=== PATIENT | male | born 1995 | race Caucasian/White ===

== ENCOUNTER 2022-08-29 12:07 | Emergency (ER) | payer SELFPAY ==
[~2022-08-29] VITALS: Ht 157 cm; Wt 99.0 kg
[~2022-08-29 12:07] MED LIST: CEPH500C PO; CIPR-225 PO; DICL50TA4 PO; HYDR-1231 PO; HYDR-3876 PO; HYDR-4226 PO; IBUP-1780 PO; ONDA4TAB8 SL; OXYC1TAB87 PO
[2022-08-29] MEDS ORDERED: fentaNYL INJ 100 MCG/2 ML AMP IVP STA (12:59)
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
[2022-08-29] MEDS ORDERED: IOHEXOL 350 MG/ML 100 ML (OMNIPAQUE 350) VIAL IV ONE (13:30)
[2022-08-29] MEDS ORDERED: NS 100 ML (IVPB) BAG IV ONE (13:30)
[2022-08-29] MEDS ORDERED: HOLD METFORMIN - RECEIVED CONTRAST 20 ML VIAL IV SCH (13:30)
[2022-08-29 14:12] LABS: BASOPHILS # (AUTO) 0.1 10^3/uL (0.0-0.1); BASOPHILS % (AUTO) 1 % (0-10); EOSINOPHILS # (AUTO) 0.2 10^3/uL (0.0-0.3); EOSINOPHILS % (AUTO) 2 % (0-10); HEMATOCRIT 46 % (40-54); HEMOGLOBIN 14.9 g/dL (13.3-17.7); LYMPHOCYTES # (AUTO) 2.2 10^3/uL (1.0-4.0); LYMPHOCYTES % (AUTO) 22 % (12-44); MEAN CORPUSCULAR HEMOGLOBIN 27 pg (25-34); MEAN CORPUSCULAR HGB CONC 32 g/dL (32-36); MEAN CORPUSCULAR VOLUME 84 fL (80-99); MEAN PLATELET VOLUME 9.2 fL (9.0-12.2); MONOCYTES # (AUTO) 0.9 10^3/uL (0.0-1.0); MONOCYTES % (AUTO) 9 % (0-12); NEUTROPHILS # (AUTO) 6.6 10^3/uL (1.8-7.8); NEUTROPHILS % (AUTO) 66 % (42-75); PLATELET COUNT 341 10^3/uL (130-400); WHITE BLOOD COUNT 9.9 10^3/uL (4.3-11.0)
[2022-08-29 14:20] LABS: ALBUMIN 4.3 GM/DL (3.2-4.5); POTASSIUM 4.1 MMOL/L (3.6-5.0)
[2022-08-29 14:22] LABS: CALCIUM 9.8 MG/DL (8.5-10.1)
[2022-08-29 14:23] LABS: TOTAL PROTEIN 7.8 GM/DL (6.4-8.2)
[2022-08-29 14:24] LABS: BILIRUBIN,TOTAL 0.3 MG/DL (0.1-1.0)
[2022-08-29 14:26] LABS: CREATININE SERUM 0.72 MG/DL (0.60-1.30)
--- NOTE | 2022-08-29 14:32 | Diagnostic Imaging Report ---
PROCEDURE: CT lumbar spine without contrast. TECHNIQUE: Multiple contiguous axial images were obtained through the lumbar spine without the use of intravenous contrast. Sagittal and coronal reformations were then performed. Auto Exposure Controls were utilized during the CT exam to meet ALARA standards for radiation dose reduction. INDICATION: Right leg pain. Wound VAC with drainage, site unspecified. COMPARISON: None. FINDINGS: There 5 lumbar-type vertebral bodies. Normal alignment. Superior endplate compression fractures of T12 and L1 resulting in approximately 10% height loss at both levels. There is some sclerosis associated with the superior endplates and no acute appearing fracture lines identified. Vertebral body heights are otherwise preserved. No CT evidence high-grade spinal canal stenosis. Bilateral sacroiliac joint anchors. Chronic appearing fracture deformity of the left sacral ala is partially visualized. Punctate nonobstructing calyceal tip renal stones in the right kidney. No acute CT findings in the visualized paravertebral soft tissues. No skin defects are seen within the [id number]. IMPRESSION: 1. Superior endplate compression fractures of T12 and L1 are most likely chronic. No acute appearing fracture lines. 2. Partially visualized chronic left sacral ala fracture and bilateral sacroiliac joint anchors. 3. No CT evidence of neural impingement. Dictated by: Dictated on workstation # [id number]
--- NOTE | 2022-08-29 15:05 | Diagnostic Imaging Report ---
PROCEDURE: CT right lower extremity without contrast. TECHNIQUE: Axially acquired CT was obtained through the right lower extremity without intravenous contrast. Coronal and sagittal reformations were also performed. Auto Exposure Controls were utilized during the CT exam to meet ALARA standards for radiation dose reduction. INDICATION: Right leg pain. Recent surgery. COMPARISON: None. FINDINGS: No mass or fluid collection is seen in the soft tissues of the right lower extremity. There is an area of soft tissue fullness in the superficial soft tissues of the mid aspect of the medial right thigh measuring 5.9 x 1.3 cm. Mildly prominent right inguinal lymph nodes are seen. No evidence of mass or hematoma in the musculature of the included right lower extremity. No acute osseous abnormality. The included abdomen and pelvis have normal appearance. IMPRESSION: 1. Cellulitis involving the medial aspect of the mid right thigh. No drainable fluid collection or evidence of soft tissue mass. Dictated by: Dictated on workstation # [id number]
[2022-08-29] MEDS ORDERED: CEPH500T PO (15:35)
[2022-08-29] MEDS ORDERED: DOXY100T31 PO (15:35)
[2022-08-29] MEDS ORDERED: ACHD5005 PO (15:36)
[2022-08-29] MEDS ORDERED: APIX2.5T PO (15:36)
[2022-08-29 15:47] VITALS: BP 132/92
== END 2022-08-29 15:47 | disposition home or self-care (01) ==
LOC: EDUNIT# 12:07 → ER 12:09
DX: L03.115 Cellulitis of right lower limb (principal); M54.50 Low back pain, unspecified; M48.55XA Collapsed vertebra, not elsewhere classified, thoracolumbar region, initial encounter for fracture; R10.2 Pelvic and perineal pain; G89.29 Other chronic pain; R00.0 Tachycardia, unspecified; F17.200 Nicotine dependence, unspecified, uncomplicated; Z79.02 Long term (current) use of antithrombotics/antiplatelets; Z87.81 Personal history of (healed) traumatic fracture
CPT/HCPCS: 36415; 72131; 73700; 80053; 85025

== ENCOUNTER 2022-09-27 10:45 | Emergency (ER) | payer OTHER ==
[~2022-09-27] VITALS: Ht 157 cm; Wt 99.0 kg
[~2022-09-27 10:45] MED LIST changes: +ACHD5005 PO; +APIX2.5T PO; +CEPH500T PO; +DOXY100T31 PO
[2022-09-27 10:58] VITALS: BP 131/88
[2022-09-27] MEDS ORDERED: DOXY100T31 PO (11:11)
[2022-09-27] MEDS ORDERED: CEPH500T PO (11:11)
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
== END 2022-09-27 11:16 | disposition home or self-care (01) ==
LOC: EDUNIT# 10:45 → ER 10:48
DX: L03.115 Cellulitis of right lower limb (principal); M25.511 Pain in right shoulder; M25.561 Pain in right knee; M54.50 Low back pain, unspecified; Z88.1 Allergy status to other antibiotic agents
CPT/HCPCS: 99281

== ENCOUNTER 2023-01-29 15:00 | Emergency (ER) | payer OTHER ==
[~2023-01-29] VITALS: Ht 157.5 cm; Wt 113.4 kg
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
[2023-01-29] MEDS ORDERED: levETIRAcetam 1000 mg/NS 100ml 100 ML IV STA (15:27)
[2023-01-29 16:03] LABS: POTASSIUM 4.1 MMOL/L (3.6-5.0)
[2023-01-29 16:04] LABS: CALCIUM 8.8 MG/DL (8.5-10.1)
[2023-01-29 16:08] LABS: CREATININE SERUM 0.76 MG/DL (0.60-1.30)
[2023-01-29 16:24] VITALS: BP 125/84
== END 2023-01-29 16:24 | disposition home or self-care (01) ==
LOC: ER 15:07 → EDUNIT# 15:07 → ER 16:24
DX: G40.909 Epilepsy, unspecified, not intractable, without status epilepticus (principal); F17.210 Nicotine dependence, cigarettes, uncomplicated; Z79.899 Other long term (current) drug therapy
CPT/HCPCS: 36415; 80048